=== PATIENT | male | born 1955 | race Caucasian/White ===

== ENCOUNTER 2020-05-25 15:46 | Emergency (ER) | payer BC, MEDICARE ==
--- NOTE | 2020-05-25 16:31 | EDM.PDOC ---
ED HPI GENERAL MEDICAL PROBLEM - General Chief Complaint: General Stated Complaint: HEART TROUBLE, LT ARM NUMB Time Seen by Provider: 05/25/20 16:31 Source of Information: Reports: Patient History Limitations: Reports: No Limitations - History of Present Illness INITIAL COMMENTS - FREE TEXT/NARRATIVE: PT IS HAVING EPISODES WHEN HE GETS VERY SWEATY AND HE HAD CONFUSION ON SAT AND SUN AM. hE DID SOME HEAVY WORK ON SAT AND HE DID NOT EAT MUCH. hE WAS QUITE CONFUSED WHEN HE CAME IN. hE HAS BEEN A DIABETIC UNTIL HIS GASTRIC BYPASS 2 YEARS AGO. hE HAS NOT CHECKED HIS BS RECENTLY. HE DOES NOT HAVE A HEADACHE. hE DID HAVE SOME TINGLING IN BOTH ARMS. hE HAS ALWAYS BEEN ABLE TO USE HIAS ARMS. Onset: Gradual Duration: Hour(s): Location: Reports: Head, Other (PT IS HAVING PERIOD OF CONFUSION) Associated Symptoms: Reports: Confusion - Related Data Allergies Allergy/AdvReac Type Severity Reaction Status Date / Time celecoxib [From Celebrex] Allergy Rash Verified 05/25/20 16:00 Sulfa (Sulfonamide Allergy Rash Verified 05/25/20 16:00 Antibiotics) Home Meds: Home Meds Sildenafil Citrate [Viagra] 100 mg PO ASDIRECTED PRN 01/20/16 [History] Triamcinolone Acetonide [Kenalog 0.1% Crm] 1 applic TOP TID PRN 01/20/16 [History] Acetaminophen [Tylenol] 650 mg PO Q6H cup 07/30/18 [Rx] Calcium Carbonate [Calcium] 600 mg PO DAILY 05/25/20 [History] Cyanocobalamin (Vitamin B-12) [Vitamin B-12] 5,000 mcg PO DAILY 05/25/20 [History] Iron Vitamin D 1 tab PO DAILY 05/25/20 [History] Multivitamin [Multivitamins] 1 tab PO DAILY 05/25/20 [History] Zinc 0 mg PO DAILY 05/25/20 [History] Past Medical History HEENT History: Reports: Impaired Vision Cardiovascular History: Reports: High Cholesterol Gastrointestinal History: Reports: GERD, Hiatal Hernia Musculoskeletal History: Reports: Other (See Below) Other Musculoskeletal History: L hip pain Psychiatric History: Reports: Depression Endocrine/Metabolic History: Reports: Diabetes, Type II, Other (See Below) Other Endocrine/Metabolic History: type 2 DM resolved - Infectious Disease History Infectious Disease History: Reports: Chicken Pox - Past Surgical History GI Surgical History: Reports: Bariatric Procedure, Colonoscopy, EGD Musculoskeletal Surgical History: Reports: Amputation Other Musculoskeletal Surgeries/Procedures:: rigth leg below the knee Social & Family History - Family History Family Medical History: Noncontributory - Tobacco Use Used Tobacco, but Quit: Yes Month/Year Tobacco Last Used: 05/2020 - Caffeine Use Caffeine Use: Reports: Coffee - Recreational Drug Use Recreational Drug Use: No ED ROS GENERAL - Review of Systems Review Of Systems: See Below Constitutional: Reports: Weakness HEENT: Reports: No Symptoms Respiratory: Reports: No Symptoms Cardiovascular: Reports: No Symptoms GI/Abdominal: Reports: No Symptoms : Reports: No Symptoms Musculoskeletal: Reports: No Symptoms Skin: Reports: No Symptoms ED EXAM, GENERAL - Physical Exam Exam: See Below Free Text/Narrative:: PT ARRIVED WITH A HISTORY OF BEING QUITE CONFUSED AT TIMES. hE HAS SOME TINGLING IN HIS LEFT ARM. Exam Limited By: No Limitations General Appearance: Alert, No Apparent Distress, Anxious, Other (PUPILS ARE EQUAL AND REACTIVE. ) Ears: Normal TMs Nose: Normal Inspection Throat/Mouth: Normal Inspection Head: Atraumatic Neck: Normal Inspection Respiratory/Chest: No Respiratory Distress Cardiovascular: Regular Rate, Rhythm, Other ( HEART RATE IS IN THE 50S. ) GI/Abdominal: Soft, Non-Tender (Male) Exam: Deferred Rectal (Males) Exam: Deferred Back Exam: Normal Inspection Extremities: Normal Inspection, Other (PT HAS NORMAL STRENGTH IN HER ARMS. ) Neurological: Alert, Oriented, Normal Cognition Psychiatric: Anxious Course - Vital Signs Last Recorded V/S: Last Vital Signs Temp 37.1 C 05/25/20 15:56 Pulse 43 L 05/25/20 17:23 Resp 19 05/25/20 17:23 BP 148/73 H 05/25/20 17:23 Pulse Ox 98 05/25/20 17:23 - Orders/Labs/Meds Orders: Active Orders 24 hr Category Date Time Status EKG Documentation Completion [RC] ASDIRECTED Care 05/25/20 15:56 Active Sodium Chloride 0.9% [Normal Saline] 1,000 ml Med 05/25/20 17:30 Stop Req IV ASDIRECTED EKG 12 Lead [EK] Routine Ther 05/25/20 15:56 Ordered Medication Orders Sodium Chloride (Normal Saline) 1,000 mls @ 999 mls/hr IV ASDIRECTED IVAN Last Admin: 05/25/20 17:42 Dose: 999 mls/hr Documented by: Labs: Laboratory Tests 05/25/20 05/25/20 05/25/20 Range/Units 16:40 16:40 16:40 WBC 5.0 (4.5-11.0) K/uL RBC 4.37 (4.30-5.90) M/uL Hgb 13.0 D (12.0-15.0) g/dL Hct 40.3 (40.0-54.0) % MCV 92 (80-98) fL MCH 30 (27-31) pg MCHC 32 (32-36) % Plt Count 149 L (150-400) K/uL Neut % (Auto) 54 (36-66) % Lymph % (Auto) 34 (24-44) % Sequoyah % (Auto) 10 H (2-6) % Eos % (Auto) 1 L (2-4) % Baso % (Auto) 0 (0-1) % Sodium 146 (140-148) mmol/L Potassium 3.6 (3.6-5.2) mmol/L Chloride 113 H (100-108) mmol/L Carbon Dioxide 25 (21-32) mmol/L Anion Gap 11.6 (5.0-14.0) mmol/L BUN 10 (7-18) mg/dL Creatinine 0.9 (0.8-1.3) mg/dL Est Cr Clr Drug Dosing 93.10 mL/min Estimated GFR (MDRD) > 60 (>60) Glucose 110 H (74-106) mg/dL Calcium 8.0 L (8.5-10.1) mg/dL Total Bilirubin 0.3 D (0.2-1.0) mg/dL AST 30 (15-37) U/L ALT 46 (12-78) U/L Alkaline Phosphatase 87 (46-116) U/L Troponin I < 0.017 (0.000-0.056) ng/mL Total Protein 5.7 L (6.4-8.2) g/dL Albumin 3.1 L (3.4-5.0) g/dL Globulin 2.6 (2.3-3.5) g/dL Albumin/Globulin Ratio 1.2 (1.2-2.2) Urine Color (YELLOW) Urine Appearance (CLEAR) Urine pH (5.0-8.0) Ur Specific Bruno (1.008-1.030) Urine Protein (NEGATIVE) mg/dL Urine Glucose (UA) (NEGATIVE) mg/dL Urine Ketones (NEGATIVE) mg/dL Urine Occult Blood (NEGATIVE) Urine Nitrite (NEGATIVE) Urine Bilirubin (NEGATIVE) Urine Urobilinogen (0.2-1.0) EU/dL Ur Leukocyte Esterase (NEGATIVE) Urine RBC (0-5) Urine WBC (0-5) Ur Epithelial Cells Amorphous Sediment Urine Bacteria Urine Mucus Urine Other Ethyl Alcohol mg/dL 05/25/20 05/25/20 Range/Units 16:40 17:09 WBC (4.5-11.0) K/uL RBC (4.30-5.90) M/uL Hgb (12.0-15.0) g/dL Hct (40.0-54.0) % MCV (80-98) fL MCH (27-31) pg MCHC (32-36) % Plt Count (150-400) K/uL Neut % (Auto) (36-66) % Lymph % (Auto) (24-44) % Sequoyah % (Auto) (2-6) % Eos % (Auto) (2-4) % Baso % (Auto) (0-1) % Sodium (140-148) mmol/L Potassium (3.6-5.2) mmol/L Chloride (100-108) mmol/L Carbon Dioxide (21-32) mmol/L Anion Gap (5.0-14.0) mmol/L BUN (7-18) mg/dL Creatinine (0.8-1.3) mg/dL Est Cr Clr Drug Dosing mL/min Estimated GFR (MDRD) (>60) Glucose (74-106) mg/dL Calcium (8.5-10.1) mg/dL Total Bilirubin (0.2-1.0) mg/dL AST (15-37) U/L ALT (12-78) U/L Alkaline Phosphatase (46-116) U/L Troponin I (0.000-0.056) ng/mL Total Protein (6.4-8.2) g/dL Albumin (3.4-5.0) g/dL Globulin (2.3-3.5) g/dL Albumin/Globulin Ratio (1.2-2.2) Urine Color Yellow (YELLOW) Urine Appearance Clear (CLEAR) Urine pH 6.5 (5.0-8.0) Ur Specific Bruno 1.025 (1.008-1.030) Urine Protein Negative (NEGATIVE) mg/dL Urine Glucose (UA) Negative (NEGATIVE) mg/dL Urine Ketones Negative (NEGATIVE) mg/dL Urine Occult Blood Negative (NEGATIVE) Urine Nitrite Negative (NEGATIVE) Urine Bilirubin Negative (NEGATIVE) Urine Urobilinogen 1.0 (0.2-1.0) EU/dL Ur Leukocyte Esterase Negative (NEGATIVE) Urine RBC 0-5 (0-5) Urine WBC Not seen (0-5) Ur Epithelial Cells Not seen Amorphous Sediment Not seen Urine Bacteria Not seen Urine Mucus Few Urine Other Ethyl Alcohol < 3 mg/dL Meds: Medications Generic Name Dose Route Start Last Admin Trade Name Freq PRN Reason Stop Dose Admin Sodium Chloride 1,000 mls @ 999 mls/hr 05/25/20 17:30 05/25/20 17:42 Normal Saline IV 999 mls/hr ASDIRECTED [facility] Administration - Re-Assessments/Exams Free Text/Narrative Re-Assessment/Exam: 05/25/20 17:46 PT ARRIVED WITH A HISTORY OF CONFUSION. hE HAS PERIODS WHEN HE GETS QUITE SWEATY. hE HAD A CAT SCAN OF THE HEAD THAT WAS NEG. hIS CHEMS LOOK GOOD. hE HAS NOT BEEN CHECKING HIS BS RECENTLY. hE HAD A TROP THAT WAS NORMAL. Departure - Departure Time of Disposition: 17:47 Disposition: Home, Self-Care 01 Condition: Fair Clinical Impression: Confusion - Discharge Information Referrals: Niall Mazariegos MD [Primary Care Provider] - Forms: ED Department Discharge Care Plan Goals: PUSH FLUIDS, CHECK BS FREQUENTLY AND PARTICULARLY WHEN HE NOTES BEING SWEATY. kEEP APPT WITH dR Mazariegos cHECK SUGARS AND SEE WHAT THEY ARE RUNNING IF IT HAS BEEN A LONG PERIOD SINCE HE HAS EATEN. Sepsis Event Note (ED) - Evaluation Sepsis Screening Result: No Definite Risk - Focused Exam Vital Signs: Vital Signs Temp Pulse Resp BP Pulse Ox 05/25/20 17:23 43 L 19 148/73 H 98 05/25/20 16:51 48 L 11 L 143/75 H 05/25/20 16:21 52 L 12 156/80 H 98 05/25/20 15:56 37.1 C 54 L 18 160/57 H 96 - My Orders Last 24 Hours: My Active Orders 05/25/20 15:56 EKG Documentation Completion [RC] ASDIRECTED EKG 12 Lead [EK] Routine 05/25/20 17:30 Sodium Chloride 0.9% [Normal Saline] 1,000 ml IV ASDIRECTED - Assessment/Plan Last 24 Hours: My Active Orders 05/25/20 15:56 EKG Documentation Completion [RC] ASDIRECTED EKG 12 Lead [EK] Routine 05/25/20 17:30 Sodium Chloride 0.9% [Normal Saline] 1,000 ml IV ASDIRECTED
--- NOTE | 2020-05-25 17:09 | CRLCT ---
INDICATION: Confusion TECHNIQUE: CT head without contrast. COMPARISON: None. FINDINGS: CSF spaces: Within normal limits for age. Brain parenchyma: The banda-white differentiation is normal. No sign of mass, hemorrhage, or midline shift. Skull base and calvarium: The visualized paranasal sinuses and mastoid air cells demonstrate no acute or significant findings. The visualized orbits are grossly unremarkable. No skull fractures. IMPRESSION: Unremarkable noncontrast head CT. Please note that all CT scans at this facility use dose modulation, iterative reconstruction, and/or weight-based dosing when appropriate to reduce radiation dose to as low as reasonably achievable. Dictated by Yeison Soto MD @ May 25 2020 5:05PM Signed by Dr. Yeison Soto @ May 25 2020 5:07PM
[2020-05-25] MEDS ORDERED: Sodium Chloride 0.9% 1,000 ML IV SCH (17:30)
== END 2020-05-25 18:22 | disposition home or self-care (01) ==
LOC: JP.ED 15:46
DX: R41.0 Disorientation, unspecified (principal); E11.9 Type 2 diabetes mellitus without complications; Z88.8 Allergy status to other drugs, medicaments and biological substances; Z88.2 Allergy status to sulfonamides; Z87.891 Personal history of nicotine dependence
CPT/HCPCS: 36415; 70450; 80053; 80307; 81001; 84484; 85025; 93005; 99285; J7030

== ENCOUNTER 2021-03-22 07:46 | Day surgery (SDC) | payer BC, MEDICARE ==
[~2021-03-22 07:46] MED LIST: Midazolam 1 MG/ML 2 ML SDV ONE; Propofol 200 MG/20 ML SDV ONE; fentaNYL 100 MCG/2 ML SDV ONE
[2021-03-22] MEDS ORDERED: Sodium Chloride 0.9% 1,000 ML IV SCH (08:30)
--- NOTE | 2021-03-23 08:09 | OR ---
DATE OF PROCEDURE: 03/22/2021 SURGEON: Tyrell Arriola MD PROCEDURE PERFORMED: Colonoscopy to ileocecal valve. FINDINGS: Inadequate colon prep with large amounts of solid and liquid stool. COMPLICATIONS: None. [employer]: None. ANESTHESIA: MAC. PREOPERATIVE DIAGNOSIS: Screening colonoscopy. POSTOPERATIVE DIAGNOSIS: Screening colonoscopy. RISKS: Risks, benefits, alternatives, and limitations including, but not limited to infection, bleeding, perforation, false positives, false negatives were explained to the patient who wished to proceed. PROCEDURE IN DETAIL: The patient was placed in left lateral decubitus position. Digital rectal exam was performed without abnormality. Scope was introduced and advanced atraumatically to the ileocecal valve. A photo was taken. The scope was brought back to the ascending, transverse, descending colon, and retroflexed. The prep was inadequate. Approximately 50% of the luminal surface could be seen. No abnormalities on retroflex. The patient will be rescheduled for repeat colonoscopy. Greater than 8 minutes was spent removing the scope. Tyrell Arriola MD /[id number]
== END 2021-03-22 11:26 | disposition home or self-care (01) ==
LOC: JP.SDS 07:46
PROVIDERS: ATTEND Surgery
DX: Z12.11 Encounter for screening for malignant neoplasm of colon (principal); E11.9 Type 2 diabetes mellitus without complications; E66.9 Obesity, unspecified; Z68.20 Body mass index [BMI] 20.0-20.9, adult
CPT/HCPCS: 45378; J2250; J2704; J3010; J7030

== ENCOUNTER 2021-04-15 08:06 | Day surgery (SDC) | payer BC, MEDICARE ==
[2021-04-15] MEDS ORDERED: Dextrose 5%-Lactated Ringers 1,000 ML IV SCH (08:15)
--- NOTE | 2021-04-28 15:35 | OR ---
DATE OF PROCEDURE: 04/15/2021 SURGEON: Milo Lerma MD PREOPERATIVE DIAGNOSIS: Indication for screening colonoscopy. POSTOPERATIVE DIAGNOSIS: Normal colonoscopic examination. OPERATIVE PROCEDURE: Flexible colonoscopy. ANESTHESIA: IV sedation. INDICATION FOR PROCEDURE: A 66-year-old male presenting with indication for screening colonoscopy. He does have a family history in mother with colon carcinoma history, and plan is to proceed with flexible colonoscopy with biopsies and/or polypectomy as indicated. Potential risks of the procedure including bleeding and perforation were discussed, and the patient wishes to proceed. DETAILS OF PROCEDURE: The patient was taken to the operating room and placed in a left lateral decubitus position. IV sedation was administered, after which the initial digital rectal exam was performed. The patient had a small area of skin tag, but otherwise the examination was unremarkable. Colonoscope was then passed into the rectum with retroflexion revealing uncomplicated hemorrhoidal columns. Scope was then passed to the level of the cecum. The prep was quite good with there only small amount of liquid stool present to that level, and no additional pathology was seen. Specifically, there was . No areas of colitis. No polyps or other signs of neoplasia. Scope was then withdrawn, the above findings reconfirmed, and procedure concluded. The patient was taken to the recovery room in satisfactory condition. Given the family history , next colonoscopy should be in 5 years. Milo Lerma MD /[id number]
== END 2021-04-15 11:01 | disposition home or self-care (01) ==
LOC: JP.SDS 08:06
PROVIDERS: ATTEND Surgery
DX: Z12.11 Encounter for screening for malignant neoplasm of colon (principal); Z80.0 Family history of malignant neoplasm of digestive organs; K64.4 Residual hemorrhoidal skin tags; E11.9 Type 2 diabetes mellitus without complications
CPT/HCPCS: 45378; J2250; J2704; J3010; J7121

== ENCOUNTER 2022-12-01 06:59 | Inpatient (IN) | payer BC, MEDICARE ==
[~2022-12-01 06:59] MED LIST changes: +Bupivacaine 0.5% 50 ML MDV ONE; +Lidocaine 1% with EPINEPHrine 1:100,000 50 ML MDV ONE; +Meropenem 500 MG SDV ONE; -Midazolam 1 MG/ML 2 ML SDV ONE; -Propofol 200 MG/20 ML SDV ONE; -fentaNYL 100 MCG/2 ML SDV ONE
[2022-12-01] MEDS ORDERED: Scopolamine 1.5 MG Transdermal Patch TOP ONE (07:30)
[2022-12-01 08:03] LABS: HEMOGLOBIN A1C 5.1 % (4.5-6.2)
[2022-12-01] MEDS ORDERED: diphenhydrAMINE 25 MG Cap PO PRN (08:06)
[2022-12-01] MEDS ORDERED: Naloxone 0.4 MG/ML SDV IVPUSH PRN (08:06)
[2022-12-01] MEDS ORDERED: diphenhydrAMINE 50 MG/ML SDV IVPUSH PRN ×2 (08:06→12:30)
[2022-12-01] MEDS ORDERED: Ondansetron 4 MG/2 ML SDV IVPUSH PRN ×2 (08:06→12:30)
[2022-12-01 08:10] LABS: ESTIMATED GFR 94 mL/min (>60)
[2022-12-01] MEDS ORDERED: Dextrose 5%-Lactated Ringers 1,000 ML IV SCH (08:15)
[2022-12-01] MEDS ORDERED: cefOXitin 2 GM in Sodium Chloride 0.9% 50 ML IV ONE (08:45)
[2022-12-01] MEDS ORDERED: fentaNYL 250 MCG/5 ML SDV ONE ×2 (08:56→09:46)
[2022-12-01] MEDS ORDERED: Dexamethasone 4 MG/ML SDV ONE (08:57)
[2022-12-01] MEDS ORDERED: Propofol 200 MG/20 ML SDV ONE (08:57)
[2022-12-01] MEDS ORDERED: Ondansetron 4 MG/2 ML SDV ONE (08:57)
[2022-12-01] MEDS ORDERED: Succinylcholine 200 MG/10 ML MDV ONE (08:57)
[2022-12-01] MEDS ORDERED: Neostigmine Methylsulfate 1 MG/ML 5 ML Syringe ONE (08:57)
[2022-12-01] MEDS ORDERED: Glycopyrrolate 0.2 MG/ML 5 ML MDV ONE (08:57)
[2022-12-01] MEDS ORDERED: Rocuronium 50 MG/5 ML Vial ONE (08:57)
[2022-12-01] MEDS ORDERED: Ketamine 24 MG in Sodium Chloride 0.9% 19.76 ML IV SCH (09:00)
[2022-12-01] MEDS ORDERED: Ketamine 500 MG/5 ML MDV IV SCH (09:00)
[2022-12-01] MEDS: HYDROmorphone/Normal Saline 6 MG/30 ML PCA Vial IV PRN (09:47)
[2022-12-01] MEDS ORDERED: Glucagon,Human Recombinant 1 MG Vial IM PRN (11:21)
[2022-12-01] MEDS ORDERED: 50% Dextrose in Water 50 ML Syringe IVPUSH PRN (11:21)
[2022-12-01] MEDS ORDERED: Insulin Lispro 100 Unit/ML 3 ML KwikPen SUBCUT ONE (11:30)
[2022-12-01] MEDS ORDERED: Cyclobenzaprine 10 MG Tab PO PRN (12:18)
[2022-12-01] MEDS ORDERED: Metoclopramide 10 MG/2 ML SDV IVPUSH PRN (12:30)
[2022-12-01] MEDS ORDERED: Acetaminophen 500 MG Tab PO PRN (12:30)
[2022-12-01] MEDS ORDERED: hydrOXYzine HCl 50 MG/ML SDV IM PRN (12:30)
[2022-12-01] MEDS: Lactated Ringers 1,000 ML IV SCH ×2 (12:58→23:42)
[2022-12-01] MEDS ORDERED: Pantoprazole 40 MG Vial IVPUSH SCH (14:00)
[2022-12-01] MEDS: cefOXitin 2 GM in Sodium Chloride 0.9% 50 ML IV SCH ×2 (16:06→21:14)
[2022-12-01] MEDS: MVI, Adult with Vitamin K 10 ML, Thiamine 200 MG, Zinc/Copper/Manganese/Selenium 1 ML i... IV SCH ×4 (16:06)
[2022-12-01] MEDS: Acetaminophen 500 MG Tab PO SCH (17:31)
[2022-12-01] MEDS: Insulin Lispro 100 Unit/ML 3 ML KwikPen SUBCUT SCH ×2 (17:31→21:15)
[2022-12-01] MEDS: Heparin Sodium 5,000 Units/ML Vial SUBCUT SCH (20:02)
[2022-12-02] MEDS: Acetaminophen 500 MG Tab PO SCH ×3 (01:44→17:27)
[2022-12-02] MEDS ORDERED: Iopamidol 612 MG/ML 30 ML SDV PO STA (01:44)
[2022-12-02] MEDS: Insulin Lispro 100 Unit/ML 3 ML KwikPen SUBCUT SCH ×4 (04:23→19:28)
[2022-12-02] MEDS: cefOXitin 2 GM in Sodium Chloride 0.9% 50 ML IV SCH ×4 (04:23→22:03)
[2022-12-02 05:13] LABS: ESTIMATED GFR 94 mL/min (>60)
[2022-12-02] MEDS: Heparin Sodium 5,000 Units/ML Vial SUBCUT SCH ×2 (07:43→19:22)
[2022-12-02] MEDS ORDERED: Pantoprazole 40 MG Vial IVPUSH SCH (09:00)
[2022-12-02] MEDS: SCOPOLAMINE PATCH CHECK TOP SCH (09:25)
[2022-12-02] MEDS: Pantoprazole 40 MG Delayed-Release Granules 1 Packet PO SCH (13:03)
[2022-12-02] MEDS: MVI, Adult with Vitamin K 10 ML, Thiamine 200 MG, Zinc/Copper/Manganese/Selenium 1 ML i... IV SCH ×4 (15:36)
[2022-12-02] MEDS: HYDROmorphone/Normal Saline 6 MG/30 ML PCA Vial IV PRN (17:26)
[2022-12-02] MEDS ORDERED: Lidocaine 2% Jelly 10 ML Urojet MUCMEM ONE (17:55)
[2022-12-03] MEDS: Acetaminophen 500 MG Tab PO SCH ×4 (01:17→17:54)
[2022-12-03] MEDS: Lactated Ringers 1,000 ML IV SCH ×3 (01:18→22:34)
[2022-12-03] MEDS: Insulin Lispro 100 Unit/ML 3 ML KwikPen SUBCUT SCH ×4 (07:41→19:32)
[2022-12-03] MEDS: Heparin Sodium 5,000 Units/ML Vial SUBCUT SCH ×2 (07:43→19:32)
[2022-12-03] MEDS ORDERED: Tamsulosin 0.4 MG Cap.ER PO ONE (09:00)
[2022-12-03] MEDS ORDERED: Cyanocobalamin (Vitamin B12) 1,000 MCG/ML SDV IM ONE (09:00)
[2022-12-03] MEDS: SCOPOLAMINE PATCH CHECK TOP SCH (09:12)
[2022-12-03] MEDS: Docusate Sodium 100 MG Cap PO SCH ×2 (09:12→21:03)
[2022-12-03] MEDS: Bisacodyl 5 MG Tab PO SCH ×2 (09:12→21:03)
[2022-12-03] MEDS: Labetalol 20 MG/4 ML Syringe IVPUSH PRN ×4 (11:00→17:29)
[2022-12-03] MEDS: oxyCODONE 5 MG Tab PO PRN (12:00)
[2022-12-03] MEDS ORDERED: Furosemide 20 MG/2 ML VIAL IVPUSH ONE (12:30)
[2022-12-03] MEDS: Pantoprazole 40 MG Delayed-Release Granules 1 Packet PO SCH (13:49)
[2022-12-03] MEDS: Metoclopramide 10 MG/2 ML SDV IVPUSH SCH ×2 (17:16→23:31)
[2022-12-03] MEDS ORDERED: hydrALAZINE 20 MG/ML SDV IVPUSH PRN (18:11)
[2022-12-03] MEDS ORDERED: Azithromycin 125 MG in Sodium Chloride 0.9% 100 ML IV SCH (19:00)
[2022-12-03] MEDS ORDERED: Water For Injection, Sterile 20 ML ONE (19:20)
[2022-12-03] MEDS: Tamsulosin 0.4 MG Cap.ER PO SCH (21:04)
[2022-12-03] MEDS ORDERED: Benzocaine/Cetylpyridinium/Menthol Lozenge MUCMEM PRN (23:35)
[2022-12-04] MEDS: Acetaminophen 1,000 MG in Premix Bag 1 BAG IV SCH ×4 (01:30→20:11)
[2022-12-04] MEDS: Metoclopramide 10 MG/2 ML SDV IVPUSH SCH ×3 (05:22→17:34)
[2022-12-04] MEDS ORDERED: Tamsulosin 0.4 MG Cap.ER PO ONE (06:00)
[2022-12-04] MEDS: Insulin Lispro 100 Unit/ML 3 ML KwikPen SUBCUT SCH ×4 (08:01→20:12)
[2022-12-04] MEDS: Heparin Sodium 5,000 Units/ML Vial SUBCUT SCH ×2 (08:02→20:12)
[2022-12-04] MEDS: Bisacodyl 5 MG Tab PO SCH ×2 (08:03→20:12)
[2022-12-04] MEDS: Docusate Sodium 100 MG Cap PO SCH ×2 (08:03→20:12)
[2022-12-04] MEDS: Bisacodyl 10 MG Supp RECTAL SCH ×2 (09:02→20:13)
[2022-12-04] MEDS: Lactated Ringers 1,000 ML IV SCH (09:08)
[2022-12-04] MEDS: Furosemide 20 MG/2 ML VIAL IVPUSH SCH ×2 (09:14→17:34)
[2022-12-04] MEDS ORDERED: Pantoprazole 40 MG Vial IV SCH (14:00)
[2022-12-04] MEDS: Tamsulosin 0.4 MG Cap.ER PO SCH (20:12)
[2022-12-05] MEDS: Metoclopramide 10 MG/2 ML SDV IVPUSH SCH ×5 (00:02→23:32)
[2022-12-05] MEDS ORDERED: Iopamidol 612 MG/ML 30 ML SDV PO STA (03:33)
[2022-12-05 05:12] LABS: ESTIMATED GFR 94 mL/min (>60)
[2022-12-05] MEDS: Insulin Lispro 100 Unit/ML 3 ML KwikPen SUBCUT SCH ×4 (08:10→20:12)
[2022-12-05] MEDS: Bisacodyl 5 MG Tab PO SCH ×2 (08:12→20:17)
[2022-12-05] MEDS: Heparin Sodium 5,000 Units/ML Vial SUBCUT SCH ×2 (08:12→20:17)
[2022-12-05] MEDS: Bisacodyl 10 MG Supp RECTAL SCH ×2 (08:12→20:11)
[2022-12-05] MEDS: Docusate Sodium 100 MG Cap PO SCH ×2 (08:12→20:17)
[2022-12-05] MEDS: Pantoprazole 40 MG Tab.CR PO SCH (13:22)
[2022-12-05] MEDS: Lactated Ringers 1,000 ML IV SCH (17:30)
[2022-12-05] MEDS: Tamsulosin 0.4 MG Cap.ER PO SCH (20:17)
[2022-12-06] MEDS: Lactated Ringers 1,000 ML IV SCH (04:03)
[2022-12-06] MEDS: Metoclopramide 10 MG/2 ML SDV IVPUSH SCH (05:22)
[2022-12-06] MEDS: Insulin Lispro 100 Unit/ML 3 ML KwikPen SUBCUT SCH (08:07)
[2022-12-06] MEDS: Docusate Sodium 100 MG Cap PO SCH (08:09)
[2022-12-06] MEDS: Pantoprazole 40 MG Tab.CR PO SCH (08:09)
[2022-12-06] MEDS: Bisacodyl 5 MG Tab PO SCH (08:09)
[2022-12-06] MEDS: Heparin Sodium 5,000 Units/ML Vial SUBCUT SCH (08:09)
[2022-12-06] MEDS: Bisacodyl 10 MG Supp RECTAL SCH (08:10)
[2022-12-06] MEDS: oxyCODONE 5 MG Tab PO PRN (09:16)
== END 2022-12-06 10:00 | disposition home or self-care (01) | DRG 221 ==
LOC: UNDOADMIN 06:59 → JP.MS 06:59 → JP.SDSSCHI 06:59 → JP.MS 11:00
PROVIDERS: ADMIT Surgery; ATTEND Surgery
PROC: 0DB80ZZ Excision of Small Intestine, Open Approach (ICD-10-PCS; principal; 2022-12-01)
PROC: 0DS80ZZ Reposition Small Intestine, Open Approach (ICD-10-PCS; 2022-12-01)
PROC: 0D9670Z Drainage of Stomach with Drainage Device, Via Natural or Artificial Opening (ICD-10-PCS; 2022-12-01)
PROC: 3E0M05Z Introduction of Adhesion Barrier into Peritoneal Cavity, Open Approach (ICD-10-PCS; 2022-12-01)
DX: K56.2 Volvulus (principal); E11.649 Type 2 diabetes mellitus with hypoglycemia without coma; K46.9 Unspecified abdominal hernia without obstruction or gangrene; K56.7 Ileus, unspecified; E78.5 Hyperlipidemia, unspecified; F32.A Depression, unspecified; Z88.2 Allergy status to sulfonamides; Z98.890 Other specified postprocedural states; Z88.8 Allergy status to other drugs, medicaments and biological substances
CPT/HCPCS: 36415; 51702; 71045; 71045-26; 74019; 74019-26; 74240; 74240-26; 80053; 82947; 83036; 83735; 83880; 84100; 85025; 85027; 88307; 93005; 93010; A9270-GY; C9113; J0131; J0171; J0330; J0456; J0694; J1100; J1170; J1644; J1815; J1940; J2185; J2405; J2704; J2710; J2765; J2795; J3010; J3411; J3420; J3490; J7120; J7121; Q9967

== ENCOUNTER 2023-01-02 16:33 | Emergency (ER) | payer BC, MEDICARE ==
[2023-01-02] MEDS ORDERED: Sodium Chloride 0.9% 10 ML Syringe FLUSH PRN (16:51)
[2023-01-02 17:00] LABS: BASOPHILS ABSOLUTE AUTO 0.03 K/uL (0.00-0.10); BASOPHILS PERCENT AUTO 0.5 % (0.1-1.3); EOSINOPHILS ABSOLUTE AUTO 0.22 K/uL (0.00-0.40); EOSINOPHILS PERCENT AUTO 3.8 % (0.0-5.4); HEMATOCRIT 43.4 % (38.4-49.7); HEMOGLOBIN 14.4 g/dL (12.9-16.9); IMMATURE GRAN PERCENT AUTO 0.3 % (0.0-0.7); LYMPHOCYTES ABSOLUTE AUTO 2.49 K/uL (0.8-3.3); LYMPHOCYTES PERCENT AUTO 42.8 % (11.4-47.7); MEAN CORPUSCULAR HEMOGLOBIN 30.8 pg (31.6-35.5); MEAN CORPUSCULAR HGB CONC 33.2 g/dL (31.6-35.5); MEAN CORPUSCULAR VOLUME 92.7 fL (81.4-99.0); MONOCYTES ABSOLUTE AUTO 0.42 K/uL (0.20-0.90); MONOCYTES PERCENT AUTO 7.2 % (3.3-12.6); NEUTROPHILS ABSOLUTE AUTO 2.64 K/uL (1.0-7.6); NEUTROPHILS PERCENT AUTO 45.4 % (40.0-78.1); PLATELET COUNT,PLT 189 K/uL (130-375); RED BLOOD CELL COUNT 4.68 M/uL (4.14-5.76); WHITE BLOOD CELL COUNT,WBC 5.8 K/uL (3.2-11.0)
[2023-01-02] MEDS ORDERED: Iopamidol 755 Mg/ML 100 ML Bottle IV SCH (17:00)
[2023-01-02] MEDS ORDERED: Sodium Chloride 0.9% 75 ML IV SCH (17:00)
[2023-01-02 17:01] LABS: IMMATURE GRAN ABSOLUTE AUTO 0.02 K/uL (0.00-0.23)
[2023-01-02 17:24] LABS: ANION GAP 17.1 mmol/L (5.0-14.0); BLOOD UREA NITROGEN,BUN 25 mg/dL (7-18); CALCIUM 8.7 mg/dL (8.5-10.1); CARBON DIOXIDE,CO2 22 mmol/L (21-32); CHLORIDE,CL 109 mmol/L (100-108); CREATININE 1.1 mg/dL (0.8-1.3); ESTIMATED GFR 74 mL/min (>60); GLUCOSE RANDOM 118 mg/dL (74-106); INR 1.1; POTASSIUM,K 4.1 mmol/L (3.6-5.2); PROTHROMBIN TIME 10.7 sec (9.2-10.6); PTT,PARTIAL THROMBOPLSTIN TIME 25.9 sec (21.8-27.3); SODIUM,NA 144 mmol/L (140-148)
[2023-01-02 17:31] LABS: MAGNESIUM 2.3 mg/dL (1.8-2.4); TSH ULTRASENSITIVE 0.742 uIU/mL (0.358-3.740)
[2023-01-02 17:55] LABS: FOLIC ACID 19.5 ng/ml (8.6-58.9)
[2023-01-02 19:15] LABS: AMPHETAMINES SCREEN, URINE NEGATIVE (NEGATIVE); BARBITURATE SCREEN,URINE NEGATIVE (NEGATIVE); BENZODIAZEPINES SCREEN,URINE NEGATIVE (NEGATIVE); METHADONE SCREEN, URINE NEGATIVE (NEGATIVE); METHAMPHETAMINES SCREEN, URINE NEGATIVE (NEGATIVE); OXYCODONE SCREEN,URINE NEGATIVE (NEGATIVE); PROPOXYPHENE SCREEN,URINE NEGATIVE (NEGATIVE); THC SCREEN,URINE 50 NG/ML NEGATIVE (NEGATIVE)
== END 2023-01-02 19:19 | disposition home or self-care (01) ==
LOC: JP.ED 16:33
DX: R41.0 Disorientation, unspecified (principal); R47.81 Slurred speech; E66.9 Obesity, unspecified; F10.920 Alcohol use, unspecified with intoxication, uncomplicated; E11.9 Type 2 diabetes mellitus without complications; Z68.22 Body mass index [BMI] 22.0-22.9, adult; Z98.84 Bariatric surgery status; Z20.822 Contact with and (suspected) exposure to COVID-19; Z79.899 Other long term (current) drug therapy; Z88.1 Allergy status to other antibiotic agents; Z88.2 Allergy status to sulfonamides
CPT/HCPCS: 36415; 70450; 70496; 70498; 80048; 80305; 80307; 82607; 82746; 82947; 83735; 84443; 84484; 85025; 85610; 85730; 87635; 93005; 99285; J3490; Q9967; U0002

== ENCOUNTER 2024-12-27 06:44 | Day surgery (SDC) | payer BC, MEDICARE ==
[2024-12-27] MEDS ORDERED: Midazolam 1 MG/ML 2 ML SDV ONE (07:10)
[2024-12-27] MEDS ORDERED: Propofol 200 MG/20 ML SDV ONE (07:10)
[2024-12-27] MEDS ORDERED: fentaNYL 100 MCG/2 ML SDV ONE (07:10)
[2024-12-27] MEDS: Lactated Ringers 1,000 ML IV SCH (07:31)
== END 2024-12-27 09:42 | disposition home or self-care (01) ==
LOC: JP.SDS 06:44
PROVIDERS: ATTEND Family Medicine
DX: D50.9 Iron deficiency anemia, unspecified (principal); E11.9 Type 2 diabetes mellitus without complications; Z98.84 Bariatric surgery status; Z80.0 Family history of malignant neoplasm of digestive organs; Z88.2 Allergy status to sulfonamides; Z88.8 Allergy status to other drugs, medicaments and biological substances
CPT/HCPCS: 43239; 45378; 88305; J2250; J2704; J3010; J7120; 00813-QZ